=== PATIENT | female | born 1940 | race American Indian/Alaskan Native ===

== ENCOUNTER 2020-08-05 13:28 | Outpatient (CLI) | payer MEDICARE ==
--- NOTE | 2020-08-05 14:05 | XRay Report ---
CHEST 2 VIEWS INDICATION: COUGH R05. COMPARISON: None FINDINGS: Support devices: None. Heart: Within normal limits. Lungs/pleura: No acute air space or interstitial disease. No pneumothorax. Additional findings: None. IMPRESSION: No acute findings. Signer Name: Edgar Edmonds Jr, MD Signed: 08/05/2020 2:01 PM Workstation Name: [id number]
== END 2020-08-05 13:29 | disposition home or self-care (01) ==
LOC: SPVIMAG 13:28
PROVIDERS: ATTEND Internal Medicine
DX: R05 Cough (principal)
CPT/HCPCS: 71046